=== PATIENT | male | born 1950 | race Caucasian/White ===

== ENCOUNTER 2017-03-30 12:29 | Inpatient (IN) | payer MEDICARE, BC ==
--- NOTE | ~2017-03-30 | CR72 ---
[facility] A Service of [facility] RADIOLOGY TEXT RESULTS PATIENT: MAGNOLIA KING SR LOCATION: A 314-01 : 49 UNIT #: [id number] AGE: [address]: Lalo Tejeda MD SEX: M ORDER DR: [id number] [facility] [address]. [place], [place] [address] [id number] E MR#: [id number] #: [id number] NAME: MAGNOLIA KING SR : 1950 SEX: M STUDY DATE/TIME: 03/30/2017 13:25 UNIT: [facility] ROOM: STUDY DESCRIPTION: CR Chest Single View Portable Attending Physician: Lucio Colunga M.D. Ordering Physician: Lucio Colunga M.D. MEDICAL IMAGING REPORT This report is preliminary unless electronic signature is present EXAM Portable AP view of the chest. COMPARISON July 28, 2015, and September 07, 2008. INDICATION 66-year-old male with dyspnea since this morning. Prior myocardial infarction and cardiac stenting. FINDINGS Anterior cervical fusion hardware is incompletely imaged in the lower cervical spine. No evidence of complication is seen. No evidence of pneumothorax or pleural effusion. There are minimal increased opacities in the right costophrenic sulcus, possibly slightly nodular in nature. The finding could reflect minimal rounded atelectasis. Cardiomediastinal silhouette is within normal limits. There is calcification of the aortic arch. Tiny chronic ossicle seen just inferior to the left glenoid measuring up to 4 mm. This may represent a joint body. IMPRESSION Minimal increased opacities in the right lateral costophrenic sulcus favoring subsegmental atelectasis. One of these is slightly rounded in nature and consideration of imaging followup is recommended to ensure resolution. This could be performed in 6-8 weeks. Dictated by... Yohan Villegas M.D. THIS IS AN ELECTRONICALLY VERIFIED REPORT Yohan Villegas M.D. at 04/04/2017 2:00 PM MELVIN/jt [facility] A Service of [facility] RADIOLOGY TEXT RESULTS PATIENT: MAGNOLIA KING SR LOCATION: [facility] 314-01 : 49 UNIT #: [id number] AGE: [address]: Lalo Tejeda MD SEX: M ORDER DR: TD: 03/30/2017 15:41 JOB #: [id number] MEDICAL IMAGING REPORT Page 1 of 1 COPY
--- NOTE | ~2017-03-30 | DS ---
Unit #: [id number] #: [id number] Patient: MAGNOLIA KING SR [id number] [address] [address] [id number] I MR#: [id number] NAME: MAGNOLIA KING SR ROOM: [facility] Age: 66 Sex: M Admission Date: 03/30/2017 : 1950 Discharge Date: 04/03/2017 Attending Physician: Lalo Tejeda M.D. DISCHARGE SUMMARY ADMISSION DIAGNOSES 1. Acute pancreatitis. 2. Sepsis with initial lactic acid of 2.5. 3. Hypertension. 4. Hyperlipidemia. 5. Coronary artery disease, status post stent placement. 6. Left bundle branch block, appears to be new. 7. Chronic obstructive pulmonary disease with continued tobacco abuse. 8. Peripheral vascular disease, status post lower extremity stent placement. 9. Chronic back pain. 10. Tobacco abuse. 11. Former alcohol abuse. 12. Obstructive sleep apnea, on CPAP. 13. Ventricular tachycardia. 14. Ischemic cardiomyopathy with ejection fraction of around 24% to 28%. 15. Hypertension. 16. Hyperlipidemia. 17. Acute pancreatitis. 18. Chronic cholecystitis. DISCHARGE DIAGNOSES 1. Acute pancreatitis, resolving. 2. Hypertension. 3. Coronary artery disease, status post stent placement. 4. Ischemic cardiomyopathy with ejection fraction of around 24% 5o 28%. 5. Chronic obstructive pulmonary disease, stable. 6. Obstructive sleep apnea, compliant with CPAP, stable. 7. Peripheral vascular disease. 8. Anemia. 9. Sepsis, resolved. CONSULTANTS 1. Eric Mendoza M.D. - [facility]. 2. Dr. Peterson - [facility]. DIAGNOSTIC STUDIES IMAGING: CT of the abdomen and pelvis without IV contrast. Impression - edema of the pancreas with peripancreatic fluid and fluid extending into the anamika hepatis and in superior right mesentery. Findings are most suggestive of acute pancreatitis. Clinical correlation recommended. Apparent thickening of the transfer duodenum, perhaps reactive to inflammatory changes of the pancreas and most likely reflective of a primary duodenitis. Fluid distention of the gallbladder, likely due to Unit #: [id number] #: [id number] Patient: MAGNOLIA KING SR adjacent inflammatory change. No radiopaque cholelithiasis or other evidence of possible acute cholecystitis. Prior coronary artery stenting and stenting of the left common iliac artery. Degenerative changes of the lumbar spine with stable changes of posterior spinal fusion in the lumbar spine. Stable fracture of a single pedicle screw at L5 as described in the body of the report. Diverticulosis without evidence of acute diverticulitis. Mosaic ground-glass attenuation within the lung bases suggesting subsegmental atelectasis. Prostatic hypertrophy with internal calcifications. Correlation with serum PSA is recommended. Nonobstructive renal calculi. Other incidental findings as described in the body of the report. Ultrasound of the pancreas. Impression - pancreas not well evaluated. Visualized portion of the pancreas did appear somewhat edematous. Gallbladder wall thickening with adjacent fluid, but no gallstones are seen. This could reflect acalculous cholecystitis that can be better evaluated with HIDA if indicated. No biliary obstruction. Nuclear medicine hepatobiliary scan with gallbladder ejection fraction. Impression - markedly abnormal gallbladder ejection fraction of 4.3%. This is most consistent with a chronic cholecystitis. Reflux of bile into the stomach. Portable AP view of the chest - minimal increased opacities in the right lateral costophrenic focus favoring subsegmental atelectasis. One of these is slightly rounded in nature and consideration of imaging followup is recommended to ensure resolution. This could be performed in six to eight weeks. LABORATORY: WBC 10.4, hemoglobin 9.4, hematocrit 30.9, platelet count 175,000. Sodium 132, potassium 4.1, chloride 99, CO2 25, glucose 84, BUN 14, creatinine 1.2, calcium 7.9, alkaline phos. 159, bili total 1.2, total protein 5.0, albumin 2.5, magnesium 1.9, amylase 59. Blood cultures final x2 - no growth after five days. DISCHARGE MEDICATIONS 1. Toprol XL 25 mg p.o. daily. 2. Aspirin 81 mg p.o. daily. 3. Lodine 600 mg p.o. b.i.d. 4. Prilosec per home dose daily. 5. Isosorbide mononitrate ER 120 mg p.o. daily. 6. Fish oil 1200 mg tab, one p.o. daily. None for one week per order of cardiology. 7. Dr. Vera was consulted prior to discharge regarding antibiotic orders. Per his order, there is no indication for oral antibiotics at this time. CONDITION Stable. DISPOSITION Home. DISCHARGE INSTRUCTIONS The patient is to be discharged home on low residue diet. The patient is aware of this diet as he says he has followed it in the past. He is to call and schedule a followup appointment with cardiology per their orders. Unit #: [id number] #: [id number] Patient: MAGNOLIA KING SR He is also to call and schedule a followup appointment as needed with Dr. Vrea. HOSPITAL COURSE The patient is a 66-year-old male who presented to [facility] on the date of admission with complaints of feeling short of air and having abdominal pain. A CT of the abdomen and pelvis was performed in the emergency department with findings as dictated above which were concerning for acute pancreatitis. The patient's lipase was elevated to 935, white blood cell count 20.7, lactic acid 2.5. The patient received 30 mL/kg of normal saline in the emergency department as well as IV Zosyn and analgesics. The patient was admitted to the hospital for further evaluation and management of his condition. Please refer to the history and physical report for complete details. Dr. Eric Mendoza with [facility] was consulted for further evaluation and management of the patient's acute pancreatitis. Per review of Dr. Mendoza's consultation note, the patient reported that he had stopped drinking many years ago and had not had any problems with his stomach. The patient reported feeling somewhat better after receiving IV antibiotics and IV fluids. Dr. Mendoza felt the patient could have a biliary pancreatitis. Biliary cause was to be ruled out first by ultrasound. Subsequently, a HIDA scan was performed with results as dictated above. The patient gradually improved clinically and abdominal tenderness decreased. The patient was started on a clear liquid diet and gradually advanced to low fat, low residue diet. On 04/01/17, the patient was noted to have nonsustained V-tach. Given the patient's history of ischemic cardiomyopathy and low ejection fraction, cardiology was consulted for further evaluation and management. The patient's beta blockers from home were restarted and his heart failure medicines were optimized. The patient's vital signs including orthostatics remained stable. The recommendation per Dr. Orellana with cardiology was to continue beta pete, aspirin, isosorbide and Norvasc at home. The patient did not experience any further episodes of nonsustained V-tach. The patient was ultimately cleared for discharge home by Dr. Orellana with discharge and followup instructions as dictated above. Dictated by... Nanette Galarza A.P.R.N. for Ben Marks/errol TD: 04/09/2017 12:34 JOB #: [id number] Unit #: [id number] #: [id number] Patient: MAGNOLIA KING DISCHARGE SUMMARY Page 1 of 1 X Nanette Galarza APRN X DISCHARGE SUMMARY
--- NOTE | ~2017-03-30 | NM22 ---
[facility] A Service of [facility] & [facility] RADIOLOGY TEXT RESULTS PATIENT: MAGNOLIA KING SR LOCATION: [facility] 314- : 49 UNIT #: [id number] AGE: [address]: Lalo Tejeda MD SEX: M ORDER DR: [id number] [place] [id number] [facility]. [place], [place] [address] [id number] I MR#: [id number] Acc #: [id number] NAME: MAGNOLIA KING SR : 1950 SEX: M STUDY DATE/TIME: 03/31/2017 10:26 [facility] ROOM: [facility] STUDY DESCRIPTION: NM Hepatobiliary W GB Pharm Attending Physician: Efrain Carlton M.D. Ordering Physician: Efrain Carlton M.D. MEDICAL IMAGING REPORT This report is preliminary unless electronic signature is present EXAM Nuclear medicine hepatobiliary scan with gallbladder ejection fraction COMPARISON CT abdomen and pelvis dated March 30, 2017. INDICATION 66-year-old male with severe upper abdominal pain since yesterday. FINDINGS A total of 5.3 mCi of technetium 99 labeled Choletec were administered intravenously later followed by injection of 1.7 mcg of CCK. At 15 minutes there is expected radiotracer accumulation in the liver with early radiotracer accumulation seen in the biliary tree and gallbladder. It appears there is reflux of bile into the stomach by 45 minutes. There is prompt clearing of activity from the liver, with downstream passage of radiotracer in the small bowel. Estimated ejection fraction after 30 minutes post Kinevac injection is 4.3%. This is abnormal and is the most consistent with a chronic cholecystitis. IMPRESSION 1. Markedly abnormal gallbladder ejection fraction of 4.3%. This is most consistent with a chronic cholecystitis. 2. Reflux of bile into the stomach. Dictated by... Yohan Villegas M.D. THIS IS AN ELECTRONICALLY VERIFIED REPORT Yohan Villegas M.D. at 04/07/2017 1:32 PM MELVIN/bernie STS. [facility] A Service of [facility] & [facility] RADIOLOGY TEXT RESULTS PATIENT: MAGNOLIA KING SR LOCATION: [facility] 314-01 : [birth year] UNIT #: [id number] AGE: [address]: Lalo Tejeda MD SEX: M ORDER DR: TD: 03/31/2017 13:03 JOB #: [id number] MEDICAL IMAGING REPORT Page 1 of 1 COPY
--- NOTE | ~2017-03-30 | EKG ---
PATIENT: MAGNOLIA KING UNIT #: [id number] Ventricular Rate: 96 BPM Atrial Rate: 96 BPM P-R Interval: 190 ms QRS Duration: 122 ms Q-T Interval: 344 ms QTC Calculation(Bezet): 434 ms P [place]: 73 degrees Calculated R [place]: -56 degrees Calculated T [place]: 103 degrees Diagnosis Line: Normal sinus rhythm Diagnosis Line: Possible Left atrial enlargement Diagnosis Line: Left axis deviation Diagnosis Line: Anterior infarct , age undetermined Diagnosis Line: Abnormal ECG Diagnosis Line: When compared with ECG of 31-MAR-2017 07:30, Diagnosis Line: (unconfirmed) Diagnosis Line: Nonspecific T wave abnormality no longer evident Diagnosis Line: in Inferior leads Diagnosis Line: Confirmed by GAVIN ZEPEDA MD ([id number]) on Diagnosis Line: 04/01/2017 9:39:36 PM INTERPRETING MD: KATELYN CULVER
--- NOTE | ~2017-03-30 | CO ---
Unit #: [id number] #: [id number] Patient: MAGNOLIA HERNANDEZ [id number] [address] [place], [place] [address] [id number] I MR#: [id number] NAME: MAGNOLIA HERNANDEZ SR ROOM: [facility] Age: 66 Sex: M Admission Date: 03/30/2017 : 1950 Attending Physician: Lalo Tejeda M.D. Consultation Date: 03/31/2017 CONSULTATION REPORT HISTORY OF PRESENT ILLNESS Mr. Hernandez is a 66-year-old white male with a 36-hour history of mid epigastric abdominal pain, no previous episodes. He stopped drinking many years ago and has not had any problems with his stomach. He has had no previous abdominal operations noted. He has now hyperlipidemia. No diabetes. CT scan showed inflammation around the pancreas and some around the duodenum. The patient was noted to have a lipase greater than 900. The rest of the liver function tests were not significantly elevated. The patient says that he feels slightly better at present. He is on intravenous antibiotics and fluids. PHYSICAL EXAMINATION GENERAL: Cooperative and alert white male. HEENT: Clear. There is no jaundice. VITAL SIGNS: Stable. CHEST: Clear. CARDIAC: Rhythm is regular. ABDOMEN: Soft. Slight tenderness in the mid epigastric area to deep palpation, but no rigidity. EXTREMITIES: Full range of motion. 1 to 2+ peripheral pulses bilaterally. IMPRESSION This patient certainly could have biliary pancreatitis. We will rule out biliary cause first, I would ultrasound him before HIDA scan. We will follow him very closely. Dictated by... Ben Martinez/marciano TD: 03/31/2017 07:51 JOB #: [id number] Unit #: [id number] #: [id number] Patient: MAGNOLIA HERNANDEZ CONSULTATION REPORT Page 1 of 1 X Eric Mendoza MD X CONSULTATION REPORT
--- NOTE | ~2017-03-30 | CO ---
Unit #: [id number] #: [id number] Patient: MAGNOLIA KING [id number] [address] [place], [place] [address] [id number] I MR#: [id number] NAME: MAGNOLIA KING SR ROOM: 314 Age: 66 Sex: M Admission Date: 03/30/2017 : 1950 Attending Physician: Lalo Tejeda M.D. CONSULTATION REPORT REASON FOR CONSULT Ventricular tachycardia. HISTORY OF PRESENT ILLNESS The patient is a 66-year-old white male, who is Dr. Bender for history of coronary artery disease with 7 stents per the patient, ischemic cardiomyopathy per the patient, last EF was 24% in 08/2016, hypertension, hyperlipidemia, COPD, peripheral vascular disease with left lower extremity stent in the past, tobacco abuse, chronic back pain, obstructive sleep apnea and uses a CPAP. The patient presented to the [facility] ED on Saturday after he states at 7:30 Saturday morning, he began to have severe abdominal pain and he rates it as 9.5/10. The patient was admitted and worked up when he was found to have acute pancreatitis as well as an abnormal chronic gallbladder disease. The patient has been receiving antibiotics as well as IV fluids as the plan to avoid surgery if possible. On 03/31/2017, roughly 5:20 p.m., the patient had an 8 beat run of V-tach on the monitor. Cardiology was consulted for further evaluation and management. The patient states he had no chest pain, pressure or tightness prior to admission or during his stay here. He also denies any nausea, vomiting, diarrhea, fevers, chills, syncope or feeling that he is going to pass out. The patient denies having any evidence . Last night, he was having the ventricular tachycardia, he had no symptoms, no palpitations and no lightheadedness. The patient states he had an echo as well as a cardiac cath in 08/[address] Bender and he was told that his EF was around 24% to 28% and that his stents were all okay, but we will request the records. Initial troponins have all been negative at less than 0.05, 0.04, and 0.05 x2. On chest x-ray on admission showed no acute fluid overload or pulmonary edema. REVIEW OF SYSTEMS See HPI. PHYSICAL EXAMINATION GENERAL: This is a 66-year-old white male, who is alert and oriented x3, in no apparent distress. VITAL SIGNS: Blood pressure 144/75, pulse 120, temperature 97.7, respirations 20. HEENT: Pupils are equal, round, and reactive. Oral mucosa is moist. NECK: No JVD. No thyromegaly. No lymphadenopathy. No carotid bruits. HEART: S1, S2. Tachy rate. Regular rhythm. No S3 or S4. No clicks, no rubs, no murmurs. LUNGS: Clear. Unit #: [id number] #: [id number] Patient: MAGNOLIA KING SR ABDOMEN: Soft, tender. Bowel sounds positive. EXTREMITIES: No swelling. NEUROLOGICAL: No neuro deficits noted. ALLERGIES No known allergies. HOME MEDICATIONS Include Zanaflex, Norvasc 5 mg daily, omeprazole, isosorbide mononitrate 120 mg p.o. daily, Toprol-XL 25 mg p.o. daily, atorvastatin 80 mg p.o. daily, aspirin 81 mg p.o. daily, fish oil. PAST MEDICAL HISTORY 1. Coronary artery disease, status post stents x7. 2. Ischemic cardiomyopathy with an EF of 24% to 28%. 3. Hypertension. 4. Hyperlipidemia. 5. COPD. 6. Peripheral vascular disease with left lower extremity stent. 7. Tobacco abuse. 8. Chronic back pain. 9. Obstructive sleep apnea, uses CPAP. PAST SURGICAL HISTORY Includes 1. Coronary stents. 2. 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 3. Nine back surgeries. SOCIAL HISTORY The patient is a smoker, less than a pack per day for 52 years. The patient lives with his . He does minimal activity. He states that on a good day, getting up and walking across the bedroom does make him short of breath due to his COPD and his chronic back as well as his heart. The patient works and he works as a desk job. He does not do much activities. He denies any alcohol use and denies any other drug abuse. FAMILY HISTORY Dad of an HI at age 60. Mom had an HI and at the age of 60 from cancer. He has 3 brothers and 2 sisters, all with heart problems and MIs. DIAGNOSTIC STUDIES LABORATORY RESULTS: Include troponin of less than 0.05, then 0.04, then 0.05, and 0.05. White count 14.9, hemoglobin 11.4, hematocrit 38.2, and platelets are 230. PT 11.4, INR is 1.1. Blood culture is negative x24 hours. Sodium 135, potassium 3.9, chloride 103, CO2 of 24, glucose 75, BUN 16, creatinine 1.2, magnesium 1.7. IMAGING STUDIES: Include HIDA scan showed gallbladder ejection fraction of 1.3%, consistent with chronic cholecystitis. Ultrasound of the pancreas found right kidney is less than 2.2 cm and an edematous pancreas, consistent with acute pancreatitis. Last chest x-ray showed no acute changes. IMPRESSION 1. Ventricular tachycardia. 2. Coronary artery disease, status post stents. Unit #: [id number] #: [id number] Patient: MAGNOLIA KING SR 3. Ischemic cardiomyopathy with an ejection fraction of around 24% to 28%. 4. Hypertension. 5. Hyperlipidemia. 6. Acute pancreatitis. 7. Chronic cholecystitis. PLAN The patient was not continued on his home medications including his beta pete therapy for heart failure. We will restart his home dose of Toprol as well as his aspirin and his cholesterol medicine. We will add blood pressure medicines back slowly as blood pressure can tolerate. We will request records from Dr. Bender's office of left heart catheterization and last echo and review. At this time, the patient is asymptomatic. He has had no issues with chest pain. We will check orthostats as he does complain of being slightly dizzy upon rising up. Further recommendations pending the review as well as record review. Dictated by... MARA Weaver TD: 04/02/2017 04:46 JOB #: [id number] CONSULTATION REPORT Page 1 of 1 X X CONSULTATION REPORT
--- NOTE | ~2017-03-30 | US92 ---
[facility] A Service of [facility] RADIOLOGY TEXT RESULTS PATIENT: MAGNOLIA IKNG SR LOCATION: [facility] 314- : 49 UNIT #: [id number] AGE: [address]: Nida Lundberg MD SEX: M ORDER DR: [id number] [facility] [address] [facility]. [place], [place] [address] [id number] I MR#: [id number] Acc #: [id number] NAME: MAGNOLIA KING SR : 1950 SEX: M STUDY DATE/TIME: 03/30/2017 17:59 UNIT: [address] ROOM: 314 STUDY DESCRIPTION: Pancreas Attending Physician: Nida Lundberg M.D. Ordering Physician: Nida Lundberg M.D. MEDICAL IMAGING REPORT This report is preliminary unless electronic signature is present EXAM Ultrasound pancreas, 03/30. INDICATION Acute pancreatitis. Epigastric pain that started this morning. Abnormal CT of the abdomen today. FINDINGS Sonographic evaluation was performed of the right upper quadrant and epigastric region in multiple planes. Comparison is made with CT abdomen from 03/30/17. Pancreas is partially obscured by bowel gas. The visualized portions do appear somewhat edematous. Liver parenchyma is homogeneous. No masses. Right kidney is morphologically normal and nonobstructed. There is a right renal cyst measuring 2.0 cm. There is gallbladder wall thickening. No definite shadowing gallstones. There is some adjacent fluid. Correlate clinically to exclude acalculous cholecystitis. HIDA scan may be needed. Common duct is normal at 4 mm internal diameter. IMPRESSION 1. The pancreas is not well evaluated. The visualized portion of the pancreas did appear somewhat edematous. 2. Gallbladder wall thickening with adjacent fluid, but no gallstones are seen. This could reflect acalculous cholecystitis. This can be better evaluated with a HIDA scan if indicated. There is no biliary obstruction. Dictated by... Alon Cid Jr., M.D. [facility] A Service of [facility] RADIOLOGY TEXT RESULTS PATIENT: MAGNOLIA KING SR LOCATION: [facility] 314-01 : [birth year] UNIT #: [id number] AGE: [address]: Nida Lundberg MD SEX: M ORDER DR: THIS IS AN ELECTRONICALLY VERIFIED REPORT Alon Cid Jr., M.D. at 03/30/2017 9:44 PM JENNIFER/dar TD: 03/30/2017 20:37 JOB #: [id number] MEDICAL IMAGING REPORT Page 1 of 1 COPY
--- NOTE | ~2017-03-30 | EKG ---
PATIENT: MAGNOLIA KING UNIT #: [id number] Ventricular Rate: 65 BPM Atrial Rate: 65 BPM P-R Interval: 184 ms QRS Duration: 132 ms Q-T Interval: 430 ms QTC Calculation(Bezet): 447 ms P Moon: 70 degrees Calculated R Moon: -13 degrees Calculated T Moon: 98 degrees Diagnosis Line: Normal sinus rhythm Diagnosis Line: Non-specific intra-ventricular conduction block Diagnosis Line: T wave abnormality, consider lateral ischemia Diagnosis Line: Abnormal ECG Diagnosis Line: When compared with ECG of 28-JUL-2015 12:29, Diagnosis Line: QRS axis Shifted right Diagnosis Line: T wave inversion more evident in Lateral leads Diagnosis Line: Confirmed by GAVIN ZEPEDA MD ([id number]) on Diagnosis Line: 04/02/2017 3:15:01 PM INTERPRETING MD: KATELYN CULVER
--- NOTE | ~2017-03-30 | CT4 ---
[facility] A Service of [facility] RADIOLOGY TEXT RESULTS PATIENT: MAGNOLIA KING SR LOCATION: A 314-01 : [birth year] UNIT #: [id number] AGE: [address]: Lalo Tejeda MD SEX: M ORDER DR: [id number] [facility] [address] [place], [place] [address] [id number] E MR#: [id number] Acc #: [id number] NAME: MAGNOLIA KING SR : 1950 SEX: M STUDY DATE/TIME: 03/30/2017 13:31 UNIT: RIO ROOM: STUDY DESCRIPTION: CT Abd and Pelv Wo Cont Attending Physician: Lucio Colunga M.D. Ordering Physician: Lucio Colunga M.D. MEDICAL IMAGING REPORT This report is preliminary unless electronic signature is present EXAM CT abdomen and pelvis without IV contrast. COMPARISON July 28, 2015. INDICATION 66-year-old male with epigastric abdominal pain since this morning. FINDINGS Axial CT imaging of the abdomen and pelvis was performed without IV contrast. Lack of IV contrast limits evaluation of adenopathy, vasculature, viscera. Coronal and sagittal reformats were constructed. This CT exam was performed with one or more of the following radiation dose reduction techniques: automatic exposure control, adjustment of mA and/or kV according to patient size, and iterative reconstruction. There is a small fat/fluid-containing umbilical hernia. There is levoscoliosis of the lumbar spine. Posterior fusion hardware is seen in the lumbar spine spanning from L2 through L5. The left L2 pedicle screw minimally protrudes through the superior endplate of L2, unchanged from 2015. There is a fracture of the left L5 pedicle screw which is stable from July 2015. There is stable grade 1 retrolisthesis of L4 on L5. Multilevel degenerative facet disease is noted in the lumbar spine. No evidence of acute fracture. No suspicious osseous lesions. Prior coronary artery stenting. Stable large Schmorl node at the superior endplate of L1. Grossly stable posterior disc osteophyte complex at L2-L3. Geographic ground-glass attenuation in the visualized lungs, suggesting subsegmental atelectasis. Suture material in the posterior basilar segment right lower lobe. Diffuse calcification of the abdominal aorta and visualized thoracic aorta. There are calcifications involving the origins of the celiac, superior mesenteric and bilateral renal arteries. [facility] A Service of [facility] RADIOLOGY TEXT RESULTS PATIENT: MAGNOLIA KING SR LOCATION: C3A 314-01 : [birth year] UNIT #: [id number] AGE: [address]: Lalo Tejeda MD SEX: M ORDER DR: Dense calcifications extend into the iliac arteries. There has been prior stenting of the left common iliac artery. There is diverticulosis of the colon without evidence of acute diverticulitis. The appendix is normal. There is no evidence of bowel obstruction. There is fluid adjacent to the head of the pancreas with band-like hypoattenuation through the junction of the pancreatic body and tail. The pancreas appears edematous, and there is inflammatory change from the inferior aspect of the pancreas into the upper mesentery. There is apparent new thickening of the transverse duodenum, likely secondary finding to an acute pancreatitis. Acute primary duodenitis cannot entirely be excluded. There is a small amount of free fluid into the mesentery in the right upper quadrant of the abdomen. Fluid also extends into the anamika hepatis, likely transmitted from the pancreas. The gallbladder is fluid distended, possibly reactive to the adjacent inflammatory changes of the pancreas. No convincing evidence of acute cholecystitis. Unenhanced liver is grossly unremarkable. Spleen is unremarkable. There is mild thickening of the adrenal glands without discrete nodule, stable and possibly reflecting mild hyperplasia. There are nonobstructive renal calculi. There is a benign cyst versus angiomyolipoma in the mid pole of the right kidney measuring up to 1.7 cm. No hydronephrosis or hydroureter. No ureteral calculi. Urinary bladder is unremarkable. The prostate gland is enlarged with minimal central calcifications, possibly reflecting remote prostatitis. No pneumoperitoneum. No definite adenopathy, although, evaluation is limited by lack of IV contrast. IMPRESSION 1. Edema of the pancreas with peripancreatic fluid and fluid extending into the anamika hepatis and in superior right mesentery, findings most suggestive of an acute pancreatitis. Clinical correlation recommended. 2. Apparent thickening of the transverse duodenum, perhaps reactive to inflammatory changes at the pancreas and less likely reflective of a primary duodenitis. 3. Fluid distension of the gallbladder, likely due to adjacent inflammatory change. No radiopaque cholelithiasis or other evidence of possible acute cholecystitis. 4. Prior coronary artery stenting and stenting of the left common iliac artery. 5. Degenerative changes of the lumbar spine with stable changes of posterior spinal fusion in the lumbar spine. Stable fracture of a single pedicle screw at L5 as described in the body of the report. 6. Diverticulosis without evidence of acute diverticulitis. 7. Mosaic ground-glass attenuation within the lung bases suggesting subsegmental atelectasis. 8. Prostatic hypertrophy with internal calcifications. Correlation with serum PSA is recommended. 9. Nonobstructive renal calculi. 10. Other incidental findings as described in the body of the report. [facility] A Service of [facility] RADIOLOGY TEXT RESULTS PATIENT: MAGONLIA KING SR LOCATION: [facility] 314- : [birth year] UNIT #: [id number] AGE: [address]: Lalo Tejeda MD SEX: M ORDER DR: Dictated by... Yohan Villegas M.D. THIS IS AN ELECTRONICALLY VERIFIED REPORT Yohan Villegas M.D. at 04/07/2017 1:10 PM Emily TD: 03/30/2017 16:09 JOB #: [id number] MEDICAL IMAGING REPORT Page 1 of 1 COPY
--- NOTE | ~2017-03-30 | HP ---
Unit #: [id number] #: [id number] Patient: MAGNOLIA KING [id number] [address] [place], [place] [address] [id number] E MR#: [id number] NAME: MAGNOLIA KING ROOM: Age: 66 Sex: M Admission Date: 03/30/2017 : 1950 Attending Physician: Lucio Colunga M.D. HISTORY AND PHYSICAL CHIEF COMPLAINT Short of air, abdominal pain. HISTORY OF PRESENT ILLNESS The patient is a 66-year-old male with past medical history of hypertension, hyperlipidemia, coronary artery disease, COPD with continued tobacco abuse, peripheral vascular disease and chronic back pain who presented to the emergency department for evaluation of the above. The patient states that he was in his usual state of health until the morning of admission around 7:30 when he experienced severe abdominal pain. He states that it was somewhat gradual in onset. He describes the pain now as "severe." There are no exacerbating or alleviating factors. He denies any similar pain. He has not had any fever. He reports nausea but no vomiting. He states that he has had normal bowel movements. In the emergency department, initial pulse was 64, blood pressure 147/69. CT of the abdomen and pelvis showed findings concerning for acute pancreatitis. There is also thickening of the duodenum and fluid distending the gallbladder. Lipase is 935, white blood cell count 20.7, lactic acid 2.5. He was given 30 mL/kg of normal saline in the emergency department, as well as Zosyn and 2 mg of Dilaudid. Additionally, he received 4 mg of Zofran. He is being admitted to [facility] for evaluation and further treatment. PAST MEDICAL HISTORY 1. Admission to [facility] in August of 2016 for chest pain. 2. Coronary artery disease status post cardiac stent placement, followed by Dr. Bender. 3. Hypertension. 4. Hyperlipidemia. 5. Peripheral vascular disease status post lower extremity stent. 6. COPD, not on home oxygen, followed by Dr. Pearson. 7. Obstructive sleep apnea, on CPAP. 8. Chronic back pain. PAST SURGICAL HISTORY 1. Cardiac stent placement. 2. Cardiac catheterization. 3. Spinal fusion. 4. Hemorrhoid surgery. 5. EGD and colonoscopy within the past [address] Ureña off of [address] Unit #: [id number] #: [id number] Patient: MAGNOLIA KING SR SOCIAL HISTORY The patient smokes a pack of cigarettes daily. He states that he does have a history of heavy alcohol use, but his last drink was 1981. 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 CODE STATUS Full code. FAMILY HISTORY Notable for his mother having lung cancer. His dad of a myocardial infarction at the age of 60. ALLERGIES No known allergies. HOME MEDICATIONS Home medications include tizanidine, amlodipine, omeprazole, etodolac, isosorbide, Metoprolol, atorvastatin, aspirin and fish oil. Home medications will need to be reviewed and verified. REVIEW OF SYSTEMS A complete review of systems is negative except as indicated in the HPI. The patient states that he has lost about 15 pounds over the past 6 weeks. PHYSICAL EXAMINATION VITAL SIGNS: Temperature is 96.2, pulse 64, respirations 18, blood pressure 147/69, oxygen saturation 100% on room air. GENERAL: The patient is a male who is awake and alert, in mild distress. HEENT: The head is atraumatic. Mucous membranes are dry. NECK: Supple. Trachea is midline. CARDIOVASCULAR: Regular rate and rhythm. RESPIRATORY: Lungs are clear to auscultation bilaterally with no increased work of breathing. ABDOMEN: Soft. He is tender to palpation in the epigastric area. Bowel sounds are present in all 4 quadrants. EXTREMITIES: Extremities are nontender with no pedal edema. NEUROLOGIC: The patient is awake and alert. He follows commands. PSYCHIATRIC: Mood and affect are normal. The patient is cooperative. SKIN: Skin of examined areas is warm and dry. DIAGNOSTIC TESTS IMAGING: CT of the abdomen and pelvis shows findings concerning for acute pancreatitis. There is also thickening of the duodenum, possibly reactive. Additionally, there is fluid distension of the gallbladder. CARDIOVASCULAR: EKG shows normal sinus rhythm with a rate of 65 beats per minute. There is T wave inversion in leads V4-V6, which appears to be a change from EKG July 28, 2015. A left bundle branch block is also noted. LABORATORY: Troponin is less than 0.05. INR is 1.1. Lactic acid is 2.5. Complete blood count notable for white blood cell count of 20.7, hemoglobin and hematocrit of 12.4 and 40.7 respectively, MCV is 74.6, RDW 21.1. BNP is 251. LDH is 213. Comprehensive metabolic panel notable for glucose of 152, alkaline phosphatase 100, lipase 935. ASSESSMENT Unit #: [id number] #: [id number] Patient: MAGNOLIA KING SR 1. The patient is a 66-year-old male with acute pancreatitis. The patient's initial [place] score is 2. Lipase is 935. The patient is on omeprazole and atorvastatin, which could be contributing. The patient has a remote history of alcohol abuse. 2. Sepsis with an initial lactic acid of 2.5. 3. Hypertension. 4. Hyperlipidemia. 5. Coronary artery disease status post stent placement. 6. Left bundle branch block that appears to be new. The patient denies any chest pain. 7. COPD with continued tobacco abuse. 8. Peripheral vascular disease status post lower extremity stent placement. 9. Chronic back pain. 10. Tobacco abuse. 11. Former alcohol abuse. 12. Obstructive sleep apnea, on CPAP. PLAN 1. Admit to intermediate level. 2. NPO. 3. Normal saline at 125 mL/hour. 4. Blood cultures x2. 5. Fasting lipid panel. 6. Right upper quadrant ultrasound. 7. Consult [facility] regarding acute pancreatitis. 8. Sepsis protocol with repeat lactic acid. 9. Zosyn 3.375 grams IV q.6 hours. 10. Dilaudid p.r.n. 11. Zofran p.r.n. 12. Serial cardiac enzymes. 13. Repeat EKG in the morning. 14. Supplemental oxygen. 15. DuoNeb p.r.n. 16. CPAP at home settings. 17. Repeat labs in the morning, including INR, amylase and lipase. 18. SCDs for DVT prophylaxis. 19. Additional workup and consultants based on above. 20. Regarding code status, the patient is a full code. Dictated by Nida Lundberg M.D. Jackson TD: 03/30/2017 16:14 JOB #: [id number] Unit #: [id number] #: [id number] Patient: MAGNOLIA KING SR HISTORY AND PHYSICAL Page 1 of 1 X Nida Lundberg MD HISTORY AND PHYSICAL
--- NOTE | ~2017-03-30 | EKG ---
PATIENT: MAGNOLIA KING UNIT #: [id number] Ventricular Rate: 96 BPM Atrial Rate: 96 BPM P-R Interval: 194 ms QRS Duration: 130 ms Q-T Interval: 368 ms QTC Calculation(Bezet): 464 ms P [place]: 75 degrees Calculated R [place]: -23 degrees Calculated T [place]: 28 degrees Diagnosis Line: Normal sinus rhythm Diagnosis Line: Non-specific intra-ventricular conduction block Diagnosis Line: Nonspecific T wave abnormality Diagnosis Line: Abnormal ECG Diagnosis Line: When compared with ECG of 30-MAR-2017 13:01, Diagnosis Line: (unconfirmed) Diagnosis Line: Vent. rate has increased BY 33 BPM Diagnosis Line: Nonspecific T wave abnormality now evident in Diagnosis Line: Inferior leads Diagnosis Line: T wave amplitude has increased in Anterior leads Diagnosis Line: Confirmed by EDWARD PICKERING MD ([id number]) on Diagnosis Line: 04/02/2017 5:20:05 PM INTERPRETING MD: LEMUEL
[~2017-03-30 12:29] MED LIST: ASPIRIN PO; ASPIRINBUFF PO; ATENOLOL PO; CADUET 5 MG/401 TAB PO; FAMOTIDINE PO; FISH OIL 1,0001 CAP PO; IMDUR PO; KEFLEX PO; LODINE PO; MEDROL PO; NITROGYLCERIN SUBLINGUAL; NORCO 5/325 TAB1 TAB PO; PLAVIX PO; ROBAXIN PO; VICODIN 5/500 T1 TAB PO; VITAMIN C PO
[2017-03-30 13:54] LABS: POC - TROPONIN <0.05 ng/mL (<=0.05)
[2017-03-30 13:58] LABS: BASOPHIL# 0.1 X10e3 (0-0.3); BASOPHIL% 0.4 % (0-2.5); EOSINOPHIL% 0.2 % (0.0-7.0); HEMATOCRIT 40.7 % (38.0-50.0); HEMOGLOBIN 12.4 gm/dL (13.0-16.0); LYMPHOCYTE# 0.6 X10e3 (1.0-3.5); LYMPHOCYTE% 2.8 % (17.0-45.0); MEAN CELL VOLUME 74.6 FL (83-96); MEAN CORPUSCULAR HEMOGLOBIN 22.7 PG (28-34); MEAN CORPUSCULAR HGB CONC 30.4 g/dL (30-36); MEAN PLATELET VOLUME 8.5 FL (6.5-11.5); MONOCYTE# 1.2 X10e3 (0-1.0); MONOCYTE% 5.9 % (3.0-12.0); NEUTROPHIL# 18.8 X10e3 (1.5-7.1); NEUTROPHIL% 90.7 % (40-75); PLATELET COUNT 328 X10e3 (140-420); RED BLOOD COUNT 5.46 X10e (3.90-5.60); RED CELL DISTRIBUTION WIDTH 21.1 % (11.0-15.5); WHITE BLOOD COUNT 20.7 X10e3 (4.0-10.5)
[2017-03-30 14:03] LABS: INR 1.1; PROTHROMBIN TIME (PATIENT) 11.6 SECONDS (9.6-11.5)
[2017-03-30 14:04] LABS: DIFF IND YES
[2017-03-30 14:19] LABS: PLATELET ESTIMATE NORMAL (NORMAL)
[2017-03-30 14:20] LABS: ANISOCYTOSIS SL; ELLIPTOCYTES PRESENT; POIKILOCYTOSIS SL
[2017-03-30 15:04] LABS: BILIRUBIN, DIRECT 0.3 mg/dL (0.0-0.2); BILIRUBIN,INDIRECT 0.9 mg/dL (0.0-0.9); BILIRUBIN,TOTAL 1.2 mg/dL (0.2-2.0); BUN/CREATININE RATIO 16.92; CALCIUM SERUM 9.2 mg/dL (8.4-10.2); CREATININE SERUM 1.3 mg/dL (0.6-1.4); GLOM FILT RATE Estimated 56.5 mL/min (>60); POTASSIUM 3.6 mmol/L (3.5-5.1); PROTEIN TOTAL SERUM 7.2 g/dL (6.0-8.3)
[2017-03-30] MEDS ORDERED: PRILOSEC (17:16)
[2017-03-30] MEDS ORDERED: ZANAFLEX4 M1 PO (17:16)
[2017-03-30] MEDS ORDERED: NORVASC PO (17:16)
[2017-03-30] MEDS ORDERED: ISOSORBIDE MON120 M1 PO (17:17)
[2017-03-30] MEDS ORDERED: LODINE PO (17:17)
[2017-03-30] MEDS ORDERED: TOPROL XL PO (17:17)
[2017-03-30] MEDS ORDERED: ASPIRIN81 M2 PO (17:18)
[2017-03-30] MEDS ORDERED: FISH OIL 1,2001 EAC1 PO (17:18)
[2017-03-30] MEDS ORDERED: LIPITOR80 MG PO (17:18)
[2017-03-31 02:52] LABS: HEMATOCRIT 38.2 % (38.0-50.0); HEMOGLOBIN 11.4 gm/dL (13.0-16.0); MEAN CELL VOLUME 75.1 FL (83-96); MEAN CORPUSCULAR HEMOGLOBIN 22.3 PG (28-34); MEAN CORPUSCULAR HGB CONC 29.7 g/dL (30-36); MEAN PLATELET VOLUME 8.4 FL (6.5-11.5); RED BLOOD COUNT 5.09 X10e (3.90-5.60); WHITE BLOOD COUNT 14.9 X10e3 (4.0-10.5)
[2017-03-31 03:02] LABS: INR 1.1; PROTHROMBIN TIME (PATIENT) 11.4 SECONDS (9.6-11.5)
[2017-03-31 03:29] LABS: %MB 1.7 % (0.0-4.0); MB 2.4 ng/ml
[2017-03-31 03:32] LABS: ALBUMIN SERUM 3.1 g/dL (3.5-5.0); BILIRUBIN,TOTAL 0.7 mg/dL (0.2-2.0); BUN/CREATININE RATIO 16.66; CALCIUM SERUM 8.1 mg/dL (8.4-10.2); CREATININE SERUM 1.2 mg/dL (0.6-1.4); GLOM FILT RATE Estimated 62.2 mL/min (>60); POTASSIUM 4.2 mmol/L (3.5-5.1); PROTEIN TOTAL SERUM 5.6 g/dL (6.0-8.3)
[2017-03-31 09:14] LABS: %MB 1.5 % (0.0-4.0); MB 1.9 ng/ml
[2017-03-31 20:24] LABS: BUN/CREATININE RATIO 13.33; CALCIUM SERUM 7.9 mg/dL (8.4-10.2); CREATININE SERUM 1.2 mg/dL (0.6-1.4); GLOM FILT RATE Estimated 62.2 mL/min (>60); MAGNESIUM 1.7 mg/dL (1.6-3.0); POTASSIUM 3.9 mmol/L (3.5-5.1)
[2017-03-31 20:42] LABS: %MB 4.5 % (0.0-4.0); MB 5.7 ng/ml
[2017-04-01 02:46] LABS: %MB 5.6 % (0.0-4.0); MB 5.8 ng/ml
[2017-04-01 08:52] LABS: %MB 3.1 % (0.0-4.0); MB 3.5 ng/ml
[2017-04-01 10:49] LABS: BASOPHIL# 0.1 X10e3 (0-0.3); BASOPHIL% 0.4 % (0-2.5); EOSINOPHIL# 0.1 X10e3 (0-0.7); EOSINOPHIL% 0.4 % (0.0-7.0); HEMATOCRIT 38.2 % (38.0-50.0); HEMOGLOBIN 11.2 gm/dL (13.0-16.0); LYMPHOCYTE# 0.5 X10e3 (1.0-3.5); LYMPHOCYTE% 3.3 % (17.0-45.0); MEAN CELL VOLUME 76.3 FL (83-96); MEAN CORPUSCULAR HEMOGLOBIN 22.3 PG (28-34); MEAN CORPUSCULAR HGB CONC 29.3 g/dL (30-36); MEAN PLATELET VOLUME 9.3 FL (6.5-11.5); MONOCYTE% 6.6 % (3.0-12.0); NEUTROPHIL# 13.5 X10e3 (1.5-7.1); NEUTROPHIL% 89.3 % (40-75); PLATELET COUNT 212 X10e3 (140-420); RED BLOOD COUNT 5.01 X10e (3.90-5.60); RED CELL DISTRIBUTION WIDTH 21.7 % (11.0-15.5); WHITE BLOOD COUNT 15.1 X10e3 (4.0-10.5)
[2017-04-01 10:51] LABS: DIFF IND NO
[2017-04-01 11:03] LABS: BUN/CREATININE RATIO 12.72; CALCIUM SERUM 7.9 mg/dL (8.4-10.2); CREATININE SERUM 1.1 mg/dL (0.6-1.4); GLOM FILT RATE Estimated 69.1 mL/min (>60); POTASSIUM 4.1 mmol/L (3.5-5.1)
[2017-04-02 04:10] LABS: HEMATOCRIT 31.6 % (38.0-50.0); HEMOGLOBIN 9.6 gm/dL (13.0-16.0); MEAN CELL VOLUME 76.1 FL (83-96); MEAN CORPUSCULAR HGB CONC 30.3 g/dL (30-36); MEAN PLATELET VOLUME 8.3 FL (6.5-11.5); RED BLOOD COUNT 4.15 X10e (3.90-5.60); RED CELL DISTRIBUTION WIDTH 21.1 % (11.0-15.5); WHITE BLOOD COUNT 10.3 X10e3 (4.0-10.5)
[2017-04-02 04:26] LABS: ALBUMIN SERUM 2.6 g/dL (3.5-5.0); BILIRUBIN,TOTAL 1.2 mg/dL (0.2-2.0); BUN/CREATININE RATIO 13.33; CALCIUM SERUM 7.7 mg/dL (8.4-10.2); CREATININE SERUM 1.2 mg/dL (0.6-1.4); GLOM FILT RATE Estimated 62.2 mL/min (>60); MAGNESIUM 1.6 mg/dL (1.6-3.0); POTASSIUM 3.5 mmol/L (3.5-5.1); PROTEIN TOTAL SERUM 5.4 g/dL (6.0-8.3)
[2017-04-03 04:44] LABS: HEMATOCRIT 30.9 % (38.0-50.0); HEMOGLOBIN 9.4 gm/dL (13.0-16.0); MEAN CELL VOLUME 75.5 FL (83-96); MEAN CORPUSCULAR HEMOGLOBIN 22.9 PG (28-34); MEAN CORPUSCULAR HGB CONC 30.3 g/dL (30-36); MEAN PLATELET VOLUME 8.7 FL (6.5-11.5); RED BLOOD COUNT 4.09 X10e (3.90-5.60); RED CELL DISTRIBUTION WIDTH 21.4 % (11.0-15.5); WHITE BLOOD COUNT 10.4 X10e3 (4.0-10.5)
[2017-04-03 05:08] LABS: ALBUMIN SERUM 2.5 g/dL (3.5-5.0); BILIRUBIN,TOTAL 1.2 mg/dL (0.2-2.0); BUN/CREATININE RATIO 11.66; CALCIUM SERUM 7.9 mg/dL (8.4-10.2); CREATININE SERUM 1.2 mg/dL (0.6-1.4); GLOM FILT RATE Estimated 62.2 mL/min (>60); MAGNESIUM 1.9 mg/dL (1.6-3.0); POTASSIUM 4.1 mmol/L (3.5-5.1)
== END 2017-04-03 18:04 | disposition home or self-care (01) | DRG 871 ==
LOC: CED 12:29 → CEDOF 15:35 → C3A PCU 15:35 → CEDOF 15:46 → CED 15:46 → C3A PCU 18:42 → CEDOF 18:42 → C3A PCU 03-31 07:20
PROVIDERS: Emergency Medicine; Family Medicine; Internal Medicine
DX: A41.9 Sepsis, unspecified organism (principal); K85.10 Biliary acute pancreatitis without necrosis or infection; I47.2 Ventricular tachycardia; J44.9 Chronic obstructive pulmonary disease, unspecified; I11.0 Hypertensive heart disease with heart failure; I50.42 Chronic combined systolic (congestive) and diastolic (congestive) heart failure; E78.5 Hyperlipidemia, unspecified; I25.10 Atherosclerotic heart disease of native coronary artery without angina pectoris; F17.210 Nicotine dependence, cigarettes, uncomplicated; I73.9 Peripheral vascular disease, unspecified; G47.33 Obstructive sleep apnea (adult) (pediatric); M54.9 Dorsalgia, unspecified; G89.29 Other chronic pain; Z79.82 Long term (current) use of aspirin; I44.7 Left bundle-branch block, unspecified; F10.21 Alcohol dependence, in remission; I25.5 Ischemic cardiomyopathy; K81.1 Chronic cholecystitis; Z95.5 Presence of coronary angioplasty implant and graft
CPT/HCPCS: 36415; 71010; 74176; 76705; 78227; 80048; 80053; 80061; 80076; 82150; 82550; 82553; 83605; 83615; 83690; 83735; 83880; 84484; 85025; 85027; 85610; 87040; 93005; 94640; 94760; 96374; 96375; 99285; A9537; J1170; J1940; J2405; J2543; J2805; J3475